=== PATIENT | female | born 2000 | race Caucasian/White ===

== ENCOUNTER 2023-06-12 10:43 | Emergency (ER) | payer SELFPAY ==
[2023-06-12 10:55] VITALS: RESP 18; BMI 26.4
[2023-06-12] MEDS ORDERED: SODIUM CHLORIDE 0.9% 500 ML INFUS.BAG IV ONE (12:03)
[2023-06-12] MEDS ORDERED: ACETAMINOPHEN 1000 MG/100 ML BAG IVPB ONE (12:03)
[2023-06-12] MEDS ORDERED: ACETAMINOPHEN INJECTION 100 ML IVPB ONE (12:40)
[2023-06-12 12:51] LABS: BASO % 0.2 % (0-2.0); EOS % 1.3 % (0-4.5); HEMATOCRIT 37.1 % (32.4-45.2); HEMOGLOBIN 12.2 GM/dL (10.7-15.3); MCH 30.1 pg (25.7-33.7); MCHC 32.8 g/dl (32.0-36.0); MEAN CELL VOLUME 91.9 fl (80-96); MEAN PLT VOLUME 11.5 fl (7.5-11.1); MONO % 4.8 % (3.8-10.2); NEUT % 74.7 % (42.8-82.8); PLATELET COUNT 141 10^3/uL (134-434); RBC 4.04 M/mm3 (3.60-5.2); RDW 13.1 % (11.6-15.6); WHITE BLOOD COUNT 8.4 K/mm3 (4.0-10.0)
[2023-06-12 13:11] LABS: POTASSIUM 4.1 mmol/L (3.5-5.1)
[2023-06-12 13:13] LABS: ALBUMIN 3.4 g/dl (3.4-5.0); BLOOD UREA NITROGEN 10.8 mg/dL (7-18); CALCIUM 8.7 mg/dL (8.5-10.1)
[2023-06-12 13:16] LABS: CREATININE 0.7 mg/dL (0.55-1.3)
[2023-06-12 13:18] LABS: BILIRUBIN,TOTAL 0.3 mg/dL (0.2-1)
[2023-06-12 14:13] LABS: EPI CELLS 7 /uL (0-25.1); HYALINE CASTS 0 /uL (0-3.1); URINE APPEARANCE CLOUDY; URINE BACTERIA >9,000 /uL (0-1359); URINE BILIRUBIN NEGATIVE (NEGATIVE); URINE COLOR YELLOW; URINE GLUCOSE (UA) NEGATIVE (NEGATIVE); URINE KETONE NEGATIVE (NEGATIVE); URINE LEUK ESTERASE 2+ (NEGATIVE); URINE NITRITE POSITIVE (NEGATIVE); URINE PROTEIN 2+ (NEGATIVE); URINE RBC 118 /uL (0-23.9); URINE UROBILINOGEN 0.2 mg/dL (0.2-1.0); URINE WBC 5931 /uL (0-25.8)
[2023-06-12] MEDS ORDERED: CEFTRIAXONE 1,000 MG in DEXTROSE 5%-WATER - 50 ML IVPB ONE (14:57)
[2023-06-12 16:32] VITALS: BP 107/63; PULSE 74; TEMP 97.8
== END 2023-06-12 17:45 | disposition home or self-care (01) ==
LOC: JERFT 10:43 → JER 10:43 → JERFT 17:45
PROC: 3E033NZ Introduction of Analgesics, Hypnotics, Sedatives into Peripheral Vein, Percutaneous Approach (ICD-10-PCS; principal; 2023-06-12)
DX: O26.892 Other specified pregnancy related conditions, second trimester (principal); M54.50 Low back pain, unspecified; R10.30 Lower abdominal pain, unspecified; R30.9 Painful micturition, unspecified; O23.42 Unspecified infection of urinary tract in pregnancy, second trimester; N39.0 Urinary tract infection, site not specified; Z3A.15 15 weeks gestation of pregnancy
CPT/HCPCS: 36415; 76775-TC; 76815-TC; 80053; 81003; 84702; 84703; 85025; 87086; 87186

== ENCOUNTER 2023-06-23 20:15 | Inpatient (IN) | payer OTHER ==
[2023-06-23 20:26] VITALS: BMI 23.9
[2023-06-23 21:10] LABS: HCG,QUALITATIVE URINE Positive
[2023-06-23] MEDS ORDERED: LACTATED RINGERS SOLUTION 1000 ML INFUS.BAG IV ONE (21:12)
[2023-06-23] MEDS ORDERED: ACETAMINOPHEN 1000 MG/100 ML BAG IVPB ONE (21:12)
[2023-06-23 21:14] LABS: EPI CELLS >36 /uL (0-25.1); HYALINE CASTS 0 /uL (0-3.1); PH,URINE 6.5 (5.0-8.0); URINE APPEARANCE CLEAR; URINE BACTERIA 3300 /uL (0-1359); URINE BILIRUBIN NEGATIVE (NEGATIVE); URINE COLOR YELLOW; URINE GLUCOSE (UA) NEGATIVE (NEGATIVE); URINE KETONE NEGATIVE (NEGATIVE); URINE LEUK ESTERASE 3+ (NEGATIVE); URINE NITRITE NEGATIVE (NEGATIVE); URINE PROTEIN 1+ (NEGATIVE); URINE RBC 15 /uL (0-23.9); URINE UROBILINOGEN 0.2 mg/dL (0.2-1.0); URINE WBC 80 /uL (0-25.8)
[2023-06-23] MEDS ORDERED: ACETAMINOPHEN INJECTION 100 ML IVPB ONE (21:50)
[2023-06-23 21:51] LABS: HEMATOCRIT 34.5 % (32.4-45.2); HEMOGLOBIN 11.7 GM/dL (10.7-15.3); MCH 30.4 pg (25.7-33.7); MCHC 33.9 g/dl (32.0-36.0); MEAN CELL VOLUME 89.8 fl (80-96); MEAN PLT VOLUME 9.5 fl (7.5-11.1); PLATELET COUNT 193 10^3/uL (134-434); RBC 3.84 M/mm3 (3.60-5.2); RDW 13.2 % (11.6-15.6); WHITE BLOOD COUNT 23.4 K/mm3 (4.0-10.0)
[2023-06-23] MEDS ORDERED: AZTREONAM 1 GM VIAL (RESTRICTED TO ID) IVPB ONE (21:52)
[2023-06-23 21:58] LABS: INR 1.24 (0.83-1.09); PROTHROMBIN TIME (PATIENT) 14.4 SEC (9.7-13.0)
[2023-06-23 22:00] LABS: ACTIVATED PTT 26.2 SECONDS (25.2-36.5)
[2023-06-23] MEDS ORDERED: AZTREONAM 1 GM VIAL (RESTRICTED TO ID) ONE (22:00)
[2023-06-23 22:19] LABS: POTASSIUM 4.2 mmol/L (3.5-5.1)
[2023-06-23 22:22] LABS: CALCIUM 9.2 mg/dL (8.5-10.1)
[2023-06-23 22:23] LABS: BLOOD UREA NITROGEN 6.6 mg/dL (7-18)
[2023-06-23 22:25] LABS: ANISOCYTOSIS 0; CREATININE 1.1 mg/dL (0.55-1.3); HELMET CELLS 0; HOWELL-JOLLY BODIES 0; MACROCYTOSIS 0; OVALOCYTE 0; ROULEAU 0; SICKELED CELLS 0; TARGET CELLS 0; TEAR DROP CELLS 0; TOXIC GRANULATION 0
[2023-06-23 22:27] LABS: BILIRUBIN,TOTAL 0.5 mg/dL (0.2-1); TOT PROT 7.3 g/dl (6.4-8.2)
[2023-06-24] MEDS ORDERED: MAG HYDROX/AL HYDROX/SIMETH -MYLANTA- ORAL SUSPENSION PO ONE (02:00)
[2023-06-24] MEDS ORDERED: MAG HYDROX/AL HYDROX/SIMETH 30 ML UNIT-DOSE CUP ONE (02:02)
[2023-06-24] MEDS ORDERED: AZTREONAM 1 GM VIAL (RESTRICTED TO ID) IVPB SCH ×2 (04:00→10:00)
[2023-06-24] MEDS: SODIUM CHLORIDE 1,000 ML IV SCH ×2 (04:15→09:47)
[2023-06-24] MEDS ORDERED: ACETAMINOPHEN 1000 MG/100 ML BAG IVPB ONE (04:46)
[2023-06-24] MEDS ORDERED: ACETAMINOPHEN INJECTION 100 ML IVPB ONE (04:46)
[2023-06-24] MEDS ORDERED: ENOXAPARIN NA (PORCINE) 40 MG/0.4 ML DISP.SYRIN SQ ONE (08:30)
[2023-06-24] MEDS ORDERED: AZTREONAM 1 GM VIAL (RESTRICTED TO ID) ONE (08:30)
[2023-06-24 08:45] LABS: ERYTHROCYTE SEDIMENTATION RATE 90 mm/hr (0-20)
[2023-06-24] MEDS ORDERED: PIPERACILLIN/TAZOB 3.375 GM 3.375 GM/50 ML BAG IVPB ONE (09:23)
[2023-06-24] MEDS: PIPERACILLIN/TAZOB 3.375 GM 3.375 GM in DEXTROSE 5%-WATER - 50 ML IVPB SCH ×3 (09:45→21:04)
[2023-06-24] MEDS ORDERED: AZTREONAM 1 GM in DEXTROSE 5%-WATER - 50 ML IVPB SCH (10:00)
[2023-06-24] MEDS: ENOXAPARIN NA (PORCINE) 40 MG/0.4 ML DISP.SYRIN SQ SCH (11:16)
[2023-06-24 11:17] LABS: BASO % 1.4 % (0-2.0); HEMATOCRIT 27.1 % (32.4-45.2); HEMOGLOBIN 9.2 GM/dL (10.7-15.3); LYMPH % 4.5 % (8-40); MCH 30.3 pg (25.7-33.7); MEAN PLT VOLUME 10.6 fl (7.5-11.1); MONO % 5.7 % (3.8-10.2); NEUT % 88.4 % (42.8-82.8); PLATELET COUNT 158 10^3/uL (134-434); RBC 3.04 M/mm3 (3.60-5.2); RDW 13.3 % (11.6-15.6); WHITE BLOOD COUNT 18.2 K/mm3 (4.0-10.0)
[2023-06-24] MEDS ORDERED: ACETAMINOPHEN 325 MG TABLET (FP) PO PRN (13:44)
[2023-06-24] MEDS ORDERED: SODIUM CHLORIDE 1,000 ML IV STA (13:44)
[2023-06-24] MEDS: ACETAMINOPHEN 325 MG TABLET (FP) PO PRN ×2 (13:49→23:46)
[2023-06-24] MEDS ORDERED: IBUPROFEN 200 MG TABLET PO ONE (13:53)
[2023-06-24] MEDS: PRENATAL VITAMINS W/ FOLIC ACID TABLET (FP) PO SCH (14:16)
[2023-06-25] MEDS: PIPERACILLIN/TAZOB 3.375 GM 3.375 GM in DEXTROSE 5%-WATER - 50 ML IVPB SCH ×4 (03:50→22:03)
[2023-06-25] MEDS: SODIUM CHLORIDE 1,000 ML IV SCH (04:34)
[2023-06-25 09:56] LABS: HEMATOCRIT 29.1 % (32.4-45.2); HEMOGLOBIN 9.7 GM/dL (10.7-15.3); MCH 30.3 pg (25.7-33.7); MCHC 33.5 g/dl (32.0-36.0); MEAN CELL VOLUME 90.4 fl (80-96); PLATELET COUNT 179 10^3/uL (134-434); RBC 3.21 M/mm3 (3.60-5.2); RDW 13.6 % (11.6-15.6); WHITE BLOOD COUNT 13.7 K/mm3 (4.0-10.0)
[2023-06-25] MEDS: ENOXAPARIN NA (PORCINE) 40 MG/0.4 ML DISP.SYRIN SQ SCH (09:57)
[2023-06-25] MEDS: PRENATAL VITAMINS W/ FOLIC ACID TABLET (FP) PO SCH (09:58)
[2023-06-25 10:14] LABS: POTASSIUM 3.7 mmol/L (3.5-5.1)
[2023-06-25 10:20] LABS: BLOOD UREA NITROGEN 5.2 mg/dL (7-18); CALCIUM 8.3 mg/dL (8.5-10.1); MAGNESIUM 1.8 mg/dL (1.8-2.4)
[2023-06-25 10:22] LABS: CREATININE 0.8 mg/dL (0.55-1.3); PHOSPHOROUS 2.4 mg/dL (2.5-4.9)
[2023-06-25 10:24] LABS: TOT PROT 5.8 g/dl (6.4-8.2)
[2023-06-25 10:34] LABS: ALBUMIN 2.3 g/dl (3.4-5.0); BILIRUBIN,TOTAL 0.4 mg/dL (0.2-1)
[2023-06-25] MEDS ORDERED: MAGNESIUM OXIDE 400 MG TABLET (FP) PO ONE (11:25)
[2023-06-25] MEDS: POLYETHYLENE GLYCOL (HEALTHYLAX) 3350 17 GM PACKET PO SCH ×2 (14:32→22:04)
[2023-06-26] MEDS: PIPERACILLIN/TAZOB 3.375 GM 3.375 GM in DEXTROSE 5%-WATER - 50 ML IVPB SCH ×3 (04:02→15:24)
[2023-06-26 09:36] LABS: HEMATOCRIT 27.9 % (32.4-45.2); HEMOGLOBIN 9.6 GM/dL (10.7-15.3); MCH 30.6 pg (25.7-33.7); MCHC 34.3 g/dl (32.0-36.0); MEAN CELL VOLUME 89.2 fl (80-96); PLATELET COUNT 178 10^3/uL (134-434); RBC 3.13 M/mm3 (3.60-5.2); RDW 13.6 % (11.6-15.6); WHITE BLOOD COUNT 7.1 K/mm3 (4.0-10.0)
[2023-06-26 09:37] LABS: POTASSIUM 4.1 mmol/L (3.5-5.1)
[2023-06-26 09:40] LABS: CALCIUM 8.1 mg/dL (8.5-10.1)
[2023-06-26 09:41] LABS: ALBUMIN 2.1 g/dl (3.4-5.0); BLOOD UREA NITROGEN 8.3 mg/dL (7-18); MAGNESIUM 2.1 mg/dL (1.8-2.4)
[2023-06-26 09:44] LABS: CREATININE 0.7 mg/dL (0.55-1.3)
[2023-06-26 09:45] LABS: BILIRUBIN,TOTAL 0.3 mg/dL (0.2-1)
[2023-06-26 09:47] LABS: TOT PROT 5.5 g/dl (6.4-8.2)
[2023-06-26] MEDS: ENOXAPARIN NA (PORCINE) 40 MG/0.4 ML DISP.SYRIN SQ SCH ×2 (10:01→10:19)
[2023-06-26] MEDS: POLYETHYLENE GLYCOL (HEALTHYLAX) 3350 17 GM PACKET PO SCH ×2 (10:01→10:18)
[2023-06-26] MEDS: PRENATAL VITAMINS W/ FOLIC ACID TABLET (FP) PO SCH (10:01)
[2023-06-26 10:10] LABS: ANISOCYTOSIS 0; HELMET CELLS 0; HOWELL-JOLLY BODIES 0; MACROCYTOSIS 0; OVALOCYTE 0; ROULEAU 0; SICKELED CELLS 0; TARGET CELLS 0; TEAR DROP CELLS 0; TOXIC GRANULATION 0
[2023-06-26 10:56] LABS: HIV INTERPRETATION NEGATIVE (NEGATIVE)
[2023-06-26 14:36] VITALS: BP 104/61; PULSE 73; RESP 18; TEMP 97.6
== END 2023-06-26 16:30 | disposition home or self-care (01) | DRG 566 ==
LOC: JER 20:15 → JERBED 06-24 01:39 → J7W 06-24 10:08
PROVIDERS: ADMIT Internal Medicine; ATTEND Nurse Practitioner Acute Care
DX: O23.02 Infections of kidney in pregnancy, second trimester (principal); A41.9 Sepsis, unspecified organism; E87.1 Hypo-osmolality and hyponatremia; B96.20 Unspecified Escherichia coli [E. coli] as the cause of diseases classified elsewhere
CPT/HCPCS: 0241U-QW; 36415; 76775-TC; 76815-TC; 80053; 81003; 83605; 83690; 83735; 84100; 84702; 84703; 85025; 85027; 85610; 85651; 85730; 86140; 86850; 86900; 86901; 87040; 87081; 87086; 87186; 87389; 87491; 87591; 93005; 93010; 99285-25

== ENCOUNTER 2023-12-02 07:40 | Inpatient (IN) | payer OTHER ==
[2023-12-02] MEDS: DEXTROSE 5%-LACTATED RINGERS 1,000 ML IV SCH (08:30)
[2023-12-02 09:24] LABS: INR 0.94 (0.83-1.09); PROTHROMBIN TIME (PATIENT) 10.9 SEC (9.7-13.0)
[2023-12-02 09:25] LABS: BASO % 0.3 % (0-2.0); HEMATOCRIT 31.4 % (32.4-45.2); HEMOGLOBIN 10.5 GM/dL (10.7-15.3); LYMPH % 28.9 % (8-40); MCH 27.8 pg (25.7-33.7); MCHC 33.4 g/dl (32.0-36.0); MEAN CELL VOLUME 83.1 fl (80-96); MEAN PLT VOLUME 10.4 fl (7.5-11.1); MONO % 8.5 % (3.8-10.2); NEUT % 60.3 % (42.8-82.8); PLATELET COUNT 169 10^3/uL (134-434); RBC 3.78 M/mm3 (3.60-5.2); RDW 15.1 % (11.6-15.6); WHITE BLOOD COUNT 8.3 K/mm3 (4.0-10.0)
[2023-12-02 09:26] LABS: ACTIVATED PTT 25.7 SECONDS (25.2-36.5)
[2023-12-02] MEDS: PROMETHAZINE HCL 25 MG/1 ML VIAL IVPB ONE (09:28)
[2023-12-02] MEDS: BUTORPHANOL TARTRATE 1 MG/ML VIAL IVPB ONE (09:28)
[2023-12-02 09:34] LABS: POTASSIUM 4.1 mmol/L (3.5-5.1)
[2023-12-02 09:36] LABS: BLOOD UREA NITROGEN 10.6 mg/dL (7-18); CALCIUM 9.5 mg/dL (8.5-10.1)
[2023-12-02 09:40] LABS: CREATININE 0.6 mg/dL (0.55-1.3)
[2023-12-02] MEDS ORDERED: FENTANYL CITRATE/PF 50 MCG/ML VIAL ONE (10:55)
[2023-12-02] MEDS ORDERED: FENTANYL/BUPIVACAINE/NS/PF - PCEA - 50 ML DISP.SYRIN EP ONE (10:57)
[2023-12-02] MEDS: FENTANYL/BUPIVACAINE/NS/PF - PCEA - 50 ML DISP.SYRIN EP SCH (11:10)
[2023-12-02] MEDS ORDERED: NALOXONE HCL 0.4 MG/ML VIAL IVPUSH PRN (11:55)
[2023-12-02] MEDS ORDERED: OXYTOCIN 20 UNITS in 0.9% NS 20 UNIT/1,000 ML INFUS.BAG IV ONE ×2 (11:59→13:11)
[2023-12-02 12:58] LABS: HIV INTERPRETATION NEGATIVE (NEGATIVE)
[2023-12-02 13:40] VITALS: BMI 27.9
[2023-12-02] MEDS: OXYTOCIN 20 UNITS in 0.9% NS 20 UNIT/1,000 ML INFUS.BAG IV SCH (15:03)
[2023-12-02] MEDS ORDERED: METHYLERGONOVINE MALEATE 0.2 MG/1 ML AMP IM PRN (15:06)
[2023-12-02] MEDS ORDERED: BENZOCAINE 28 GM HEMORRHOIDAL OINTMENT TP PRN (15:06)
[2023-12-02] MEDS ORDERED: BISACODYL 10 MG SUPP.RECT RC PRN (15:06)
[2023-12-02] MEDS ORDERED: oxyCODONE HCL 5 MG TABLET PO PRN (15:06)
[2023-12-02] MEDS ORDERED: BENZOCAINE 20% 57 GM BOTTLE TP PRN (15:06)
[2023-12-02] MEDS ORDERED: IBUPROFEN 600 MG TABLET (FP) PO PRN (15:06)
[2023-12-02] MEDS ORDERED: WITCH HAZEL 50% (TUCKS) 40 PAD/JAR PAD TP PRN (15:06)
[2023-12-02] MEDS ORDERED: ACETAMINOPHEN 325 MG TABLET (FP) PO PRN (15:06)
[2023-12-03 07:11] LABS: BASO % 0.4 % (0-2.0); EOS % 1.1 % (0-4.5); HEMATOCRIT 26.1 % (32.4-45.2); HEMOGLOBIN 8.6 GM/dL (10.7-15.3); LYMPH % 21.5 % (8-40); MCH 27.4 pg (25.7-33.7); MCHC 32.9 g/dl (32.0-36.0); MEAN CELL VOLUME 83.1 fl (80-96); MEAN PLT VOLUME 10.2 fl (7.5-11.1); MONO % 8.4 % (3.8-10.2); NEUT % 68.6 % (42.8-82.8); PLATELET COUNT 160 10^3/uL (134-434); RBC 3.14 M/mm3 (3.60-5.2); RDW 15.1 % (11.6-15.6); WHITE BLOOD COUNT 12.2 K/mm3 (4.0-10.0)
[2023-12-03] MEDS ORDERED: SENNOSIDES/DOCUSATE COMBO (SENNA PLUS) TABLET (UD) PO PRN (22:00)
[2023-12-04 11:37] VITALS: BP 125/83; PULSE 92; RESP 17; TEMP 98.4
== END 2023-12-04 14:00 | disposition home or self-care (01) | DRG 560 ==
LOC: JLDR 07:40 → J3W 15:15
PROVIDERS: ADMIT Specialist; ATTEND Specialist
PROC: 10E0XZZ Delivery of Products of Conception, External Approach (ICD-10-PCS; principal; 2023-12-02)
PROC: 0W8NXZZ Division of Female Perineum, External Approach (ICD-10-PCS; 2023-12-02)
DX: O80 Encounter for full-term uncomplicated delivery (principal); Z3A.40 40 weeks gestation of pregnancy; Z37.0 Single live birth
CPT/HCPCS: 36415; 80048; 85025; 85610; 85730; 86780; 86850; 86900; 86901; 87389

== ENCOUNTER 2025-02-13 18:27 | Emergency (ER) | payer OTHER ==
[2025-02-13 18:44] VITALS: BP 132/86; PULSE 105; RESP 20; TEMP 97.6; BMI 28.4
[2025-02-13] MEDS ORDERED: ALBUTEROL SO4 2.5/IPRATROPIUM 0.5 INH SOL 3 ML VIAL.NEB. NEB SCH (19:30)
[2025-02-13] MEDS ORDERED: ALBUTEROL SO4 2.5/IPRATROPIUM 0.5 INH SOL 3 ML VIAL.NEB. NEB ONE (19:45)
[2025-02-13] MEDS ORDERED: FAMOTIDINE 20 MG TABLET ONE (19:45)
[2025-02-13] MEDS: FAMOTIDINE 20 MG TABLET PO ONE (19:48)
[2025-02-13] MEDS: ALBUTEROL SO4 2.5/IPRATROPIUM 0.5 INH SOL 3 ML VIAL.NEB. NEB ONE (19:57)
[2025-02-13] MEDS ORDERED: LIDOCAINE 5% TOPICAL PATCH TP ONE (20:48)
[2025-02-13] MEDS ORDERED: LIDOCAINE PATCH REMOVAL MC SCH (22:00)
== END 2025-02-13 20:48 | disposition home or self-care (01) ==
LOC: JER 18:27
PROC: 3E0F7GC Introduction of Other Therapeutic Substance into Respiratory Tract, Via Natural or Artificial Opening (ICD-10-PCS; principal; 2025-02-13)
DX: J45.909 Unspecified asthma, uncomplicated (principal); R06.02 Shortness of breath; R05.9 Cough, unspecified; B34.9 Viral infection, unspecified; R14.0 Abdominal distension (gaseous); M54.9 Dorsalgia, unspecified; R07.81 Pleurodynia
CPT/HCPCS: 0241U-QW; 93005; 93010; 99284-25